=== PATIENT | female | born 1950 | race Two or more races ===

== ENCOUNTER 2025-06-02 05:30 | Day surgery (SDC) | payer MEDICARE, SELFPAY ==
--- NOTE | 2025-06-01 11:30 | EKG_ITS ---
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
[2025-06-01 11:48] VITALS: BMI 35.9
[2025-06-01 12:56] LABS: Basophils # (Auto) 0.1 Thou/mm3 (0.0-0.2); Basophils % (Auto) 1 % (0-2.5); Eosinophils # (Auto) 0.3 Thou/mm3 (0.0-0.5); Eosinophils % (Auto) 3 % (0-10); Hematocrit 43.4 % (36.0-46.0); Hemoglobin 14.3 g/dL (12.0-16.0); Immature Granulocytes Auto 0.02 Thou/mm3 (0.00-0.00); Lymphocytes # (Auto) 3.3 Thou/mm3 (1.0-4.8); Lymphocytes % (Auto) 32 % (10-50); Mean Corpuscular HGB Conc 32.9 g/dl (31.0-37.0); Mean Corpuscular Hemoglobin 31.5 pg (25.0-35.0); Mean Corpuscular Volume 96 fL (80-100); Monocytes # (Auto) 0.8 Thou/mm3 (0.0-0.8); Monocytes % (Auto) 8 % (0-12); Neutrophils # (Auto) 6.0 Thou/mm3 (1.8-7.7); Neutrophils % (Auto) 57 % (37-80); Nucleated Red Blood Cell # 0.00 Thou/mm3 (0.00-0.00); Nucleated Red Blood Cell % 0 /100 WBC (0); Platelet Count 274 Thou/mm3 (140-440); RDW Standard Deviation 48.7 fL (36.4-46.3); Red Blood Count 4.54 Miln/mm3 (4.00-5.20); White Blood Count 10.6 Thou/mm3 (3.6-11.0)
[2025-06-01 13:08] LABS: INR 1.0 (0.9-1.3); Partial Thromboplastin Time 25.6 Seconds (22.0-36.0); Prothrombin Time 10.4 Seconds (9.0-12.2)
[2025-06-01 13:17] LABS: Alanine Aminotransferase 10 U/L (10-49); Albumin, Serum 4.4 gm/dL (3.4-4.8); Albumin/Globulin Ratio 1.3 (1.2-2.2); Alkaline Phosphatase 93 U/L (46-116); Anion Gap 10 (7-16); Aspartate Amino Transferase 22 U/L (0-34); BUN/Creatinine Ratio 14 Ratio (12-20); Bilirubin,Total 0.4 mg/dL (0.3-1.2); Blood Urea Nitrogen 11 mg/dL (9-23); Calcium 10.1 mg/dL (8.3-10.6); Calcium (Corrected) 10.1 mg/dL (8.5-10.1); Carbon Dioxide 28.3 mMol/L (20.0-31.0); Chloride 105 mMol/L (98-107); Creatinine (Component) 0.8 mg/dL (0.6-1.3); Estimated Creatinine Clearance 62.4 mL/min (>60); Globulin 3.4 gm/dL (2.3-3.5); Glucose 107 mg/dL (74-106); Osmolality,Calculated 284 (275-295); Potassium 4.3 mMol/L (3.4-5.1); Sodium 143 mMol/L (136-145); Total Protein 7.8 gm/dL (5.7-8.2); eGFR > 60 See Note
[2025-06-02] VITALS (7 sets, daily range): BP systolic 117–149; BP diastolic 63–80; PULSE 88–112; RESP 17–20; TEMP 36.1–36.6; O2SAT 94–99; BMI 36.6
--- NOTE | 2025-06-02 07:19 | SUR.PREOP ---
Patient expressed gratitude for prayer before their procedure.
--- NOTE | 2025-06-02 08:55 | SUR.PHASEI ---
0855: Pt. AAOx4, vitals stable, breathing unlabored, no complaint of pain or nausea, dressing to left knee CDI, no active bleed noted, pt. able to move bilateral legs, cap refill to bilateral feet less than 3 seconds, bilateral dorsalis pedis pulses strong and regular, report recieved from Sherine BABCOCK and MD Calloway.
--- NOTE | 2025-06-02 08:56 | PD.SUROPNT ---
Date of Procedure 06/02/25 Pre Op Diagnosis 1. Torn medial meniscus left knee joint 2 torn lateral meniscus 3. DJD 4. Synovitis with medial plica Post Op Diagnosis Same Procedure 1. Partial medial meniscectomy 2 partial lateral meniscectomy 3 chondroplasty 4. Partial synovectomy including excision plica Findings Refer dictation Procedure Description The patient was given general endotracheal anesthesia. Once satisfactory anesthesia was achieved, tourniquet was placed on left upper thigh. Following that the part was thoroughly prepped and draped. After using Esmarch the tourniquet pressure was raised to 350 mmHg. A skin incision was made proximal to lateral tibial plateau and arthroscope was introduced in the usual fashion. Another a skin incision was made in suprapatellar pouch area and outlet was established. The findings were noted as below. In suprapatellar pouch area significant synovial tissue inflammation was present. Medial plica was present as well. The undersurface of patella showed grade 3/4 chondromalacia. The anterior femoral condyle showed grade 3/4 chondromalacia. Soft tissue impingement was present. The patellar tracking was checked and found to be good. The medial compartment showed grade 3/4 chondromalacia for medial tibial plateau and medial femoral condyle. The medial meniscus showed degeneration and tear of the anterior horn. Another skin incision was made proximal to medial tibial plateau and a probe was introduced and findings were confirmed. The anterior cruciate ligament was intact. The anterior drawer test was performed and found to be good. 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 Lateral meniscus showed degeneration of the body and anterior horn. A shaver was introduced and shaving of the anterior horn of medial meniscus was performed. Soft tissue impingement was shaved off. Chondroplasty of the medial femoral condyle and medial tibial plateau was performed. The shaving of the body and anterior horn of lateral meniscus was done. The chondroplasty of the lateral tibial plateau and lateral femoral condyle was performed. The chondroplasty of the patella and and anterior femoral condyle was performed. The soft tissue impingement was shaved off. A partial synovectomy including excision of plica was performed. Copious amount of irrigation was used to irrigate the knee joint. All the debris were removed. 3-0 Prolene was used to close the wound. About 20 mL of quarter percent Marcaine along with 10 mg of Duramorph was injected. Patient tolerated procedure well. Estimated blood loss was about 5 mL. Prognosis in this case is guarded. Because of significant chondromalacia there is possibility that patient may continue having short and or long-term pain. In that case patient may be a candidate for knee replacement and patient is fully aware of that.. Patient was taken to the recovery room in good condition. Anesthesia GETA Pathology / specimen None Estimated Blood Loss 1 Surgeon Rian Bennett MD Surgical Staff Operation Date: 06/02/25 07:30 <No data on this case meets the specified criteria>
--- NOTE | 2025-06-02 09:47 | SUR.PHASEII ---
Addendum entered by Jayashree Lomas RN 06/02/25 09:55: 0955: Pt. AAOx4, vitals stable, breathing unlabored, no complaint of pain or nausea, dressing to left knee CDI, no active bleed noted, bilateral dorsalis pedis pulses strong and regular, cap refill to bilateral feet less than 3 seconds. Pt. tolerated sips of water well, pt. ambulated to wheelchair with steady gait and no assist, no complications. Gave discharge instructions to the pt. and her ride, both verbalized understanding and had no further questions. Pt. left with all personal belongings. Original Note: 0947: Pt. AAOx4, vitals stable, breathing unlabored, no complaint of pain or nausea, dressing to left knee CDI, no active bleed noted, bilateral dorsalis pedis pulses strong and regular, cap refill to bilateral feet less than 3 seconds. Pt. tolerated sips of water well, pt. ambulated to wheelchair with steady gait and no assist, no complications. Gave discharge instructions to the pt. and her ride, both verbalized understanding and had no further questions. Pt. left with all personal belongings.
[2025-06-02] MEDS: ONDANSETRON INJ 2 MG/ML INJ 2 ML 4 MG IVP (09:50)
--- NOTE | 2025-06-02 11:35 | ESHP_ITS ---
RE: HEYDI VIZCAINO : 1950 DATE OF ADMISSION: 06/02/2025 HISTORY AND PHYSICAL: The patient came to my office on 06/01/2025 for detailed preoperative history and physical examination. HISTORY OF PRESENTING COMPLAINT: The patient presents to me with a history of pain, swelling, clicking, and locking of the left knee joint. This is going on for a few years. However, last 7-8 months is extremely painful. The patient graded intensity of pain to be 7-8/10. Pain keeps her awake at night. Quality of life and activities of daily living is affected. Unable to walk 100 to 200 steps before she had to slow down or stop altogether. PAST MEDICAL HISTORY: The patient has a history of high blood pressure. No history of diabetes mellitus, asthma, seizure, chest pain, myocardial infarction, or bleeding disorder. PAST SURGICAL HISTORY: None known. DRUG HISTORY: The patient is on; 1. Atorvastatin. 2. Lisinopril. 3. The patient also takes aspirin, which she recently stopped. PHYSICAL EXAMINATION: GENERAL: Normal built person. Pulse 84 per minute. Blood pressure 149/83. NECK: Soft, supple, no masses felt. Trachea is centrally placed. CARDIOVASCULAR SYSTEM: First and second heart sound normal. No murmur heard. RESPIRATORY SYSTEM: Bilateral vesicular breath sounds. CHEST: Clear. ABDOMEN: Soft. No masses felt. Bowel sounds present. BREAST: Breast examination not indicated in this case. RECTAL: The patient is advised to see the family physician for regular examination. MUSCULOSKELETAL: Left knee examination reveals 1+ swelling. There is 2+ tenderness. Active range of motion 0 to 115 degrees of flexion. Left knee examination continued. Joanthan test is positive. Draw test and Trinidad test are negative. Neurovascularly, it is intact. The patient walks with a limp. LABORATORY DATA: MRI scan of the left knee revealed torn meniscus, DJD and synovitis with increased joint pain. ASSESSMENT AND PLAN: The patient is symptomatic and is affecting quality of life. Therefore, a left knee arthroscopy was discussed and advised. Risks with anesthesia was explained and that includes, but not limited to reaction to anesthetic agents, cardiac arrest, and rarely it might be fatal. Risks with operation includes infection and if that happens, the patient needs further surgical procedure. Other risks include delayed healing, wound dehiscence, etc. Sometimes rare complications happen and if that happens, that has to be taken care of. Deep venous thrombosis and pulmonary embolism may be there. Indeed, if one find grade 4 chondromalacia or grade 3 chondromalacia, the patient may continue having pain on short and long-term basis. In that case, the patient may be a candidate for knee replacement. Appropriate lab work is done. The patient wants to proceed with surgery. Surgery booked for 06/02/2025 in [facility]. DT: 10:20:10 TT: 11:33:00 Ref: [id number] - TID: [id number]
== END 2025-06-02 09:55 | disposition home or self-care (01) ==
PROVIDERS: Anesthesiology; PCP Internal Medicine Hospice and Palliative Medicine; Referring Provider Orthopaedic Surgery; Visit Provider Orthopaedic Surgery
PROC: (CPT 29870; principal; 2025-06-02 07:30)
DX: S83.242A Other tear of medial meniscus, current injury, left knee, initial encounter (principal); M22.42 Chondromalacia patellae, left knee; M17.12 Unilateral primary osteoarthritis, left knee; M65.862 Other synovitis and tenosynovitis, left lower leg; M67.52 Plica syndrome, left knee; M26.81 Anterior soft tissue impingement; M23.342 Other meniscus derangements, anterior horn of lateral meniscus, left knee; Z01.810 Encounter for preprocedural cardiovascular examination
CPT/HCPCS: 29880; 36415; 80053; 85025; 85610; 85730; 86850; 86900; 86901; 93005; A4217; A4649; J0131; J0690; J1100; J2405; J2704; J2765; J3010; J3490